=== PATIENT | male | born 1945 | race Caucasian/White ===

== ENCOUNTER → 2021-04-21 08:04 | Outpatient (CLI) | payer MEDICARE, SELFPAY ==
[2021-04-21 11:29] LABS: COVID19 -Nasal RAPID Negative (Negative)
== END ==
PROVIDERS: PCP Family Medicine; Visit Provider Nurse Practitioner Family
DX: Z20.822 Contact with and (suspected) exposure to COVID-19 (principal); R06.02 Shortness of breath
CPT/HCPCS: 87635

== ENCOUNTER → 2021-09-17 15:57 | Outpatient (CLI) | payer OTHER, SELFPAY ==
--- NOTE | 2021-09-17 15:59 | DI.RAD.S_ITS ---
PROCEDURE: XR HIP W PEL IF DONE LT 2V INDICATIONS: Left hip pain TECHNIQUE: AP pelvis with lateral view(s) of the left hip(s). COMPARISON: None. FINDINGS: Bones: No fractures or dislocations. Pelvic ring appears intact. Moderate to advanced arthrosis of the left hip with joint space loss, sclerosis of the opposing articular surface, and osteophytosis. Soft tissues: The visualized bowel gas pattern is normal. Evidence of myositis ossificans. IMPRESSION: Moderate to advanced left hip arthrosis. Dictated by: Jerardo Steve M.D. on 09/17/2021 at 16:42 Approved by: Jerardo Steve M.D. on 09/17/2021 at 16:45
== END ==
PROVIDERS: PCP Family Medicine; Referring Provider Family Medicine; Visit Provider Family Medicine
DX: M25.552 Pain in left hip (principal); M16.12 Unilateral primary osteoarthritis, left hip
CPT/HCPCS: 73502

== ENCOUNTER → 2023-01-06 10:44 | Outpatient (CLI) | payer OTHER, SELFPAY ==
[2023-01-06 11:25] LABS: Add Manual Diff / Slide Review NO; Basophils Absolute Auto 100 /uL (0-100); Basophils Percent Auto 0.8 % (0-2); Eosinophils Absolute Auto 800 /uL (0-450); Eosinophils Percent Auto 11.6 % (2-4); Hematocrit 40.8 % (41-53); Hemoglobin 14.1 g/dL (13.5-17.5); Lymphocytes Absolute Auto 1800 /uL (1100-4500); Mean Corpuscular HGB Conc 34.6 % (30-36); Mean Corpuscular Hemoglobin 30.8 PG (26-34); Mean Corpuscular Volume 88.8 fL (80-100); Monocytes Absolute Auto 400 /uL (0-900); Monocytes Percent Auto 6.8 % (3-14); Neutrophils Absolute Auto 3500 /uL (1500-7000); Neutrophils Percent Auto 52.8 % (50-75); Platelet Count 213 X10^3/uL (150-400); Red Blood Cell Count 4.59 X10^6/uL (4.5-5.9); Red Cell Distribution Width 13.1 % (11.6-14.8); White Blood Cell Count 6.6 X10^3/uL (4.5-11.0)
[2023-01-06 11:38] LABS: Alanine Aminotransferase 45 IU/L (<50); Albumin 4.3 g/dL (3.5-5.0); Albumin Globulin Ratio 1.4 (1.0-2.8); Alkaline Phosphatase 70 U/L (38-126); Aspartate Aminotransferase 36 IU/L (17-59); BUN Creatinine Ratio 19.5 (6-22); Bilirubin Total 0.4 mg/dL (0.2-1.3); Blood Urea Nitrogen 15 mg/dL (9-20); Calcium 9.2 mg/dL (8.4-10.2); Carbon Dioxide 31 mmol/L (22-32); Chloride 100 mmol/L (98-107); Cholesterol 158 mg/dL (140-199); Estimated Glomerular Filt Rate > 60 mL/min (>60); Globulin 3.1 g/dL (1.7-4.1); Glucose 106 mg/dL (80-110); HDL Cholesterol 38 mg/dL (40-60); HEMOLYSIS < 15 (0-50); LDL Cholesterol Calculated 88 mg/dL (<100); Potassium 4.2 mmol/L (3.4-5.1); Sodium 136 mmol/L (137-145); Total Protein 7.4 g/dL (6.3-8.2); Triglycerides 160 mg/dL (35-150)
[2023-01-06 12:06] LABS: Prostate Specific Antigen 4.83 ng/mL (0.10-4.00)
== END ==
PROVIDERS: PCP Family Medicine; Referring Provider Family Medicine; Visit Provider Family Medicine
DX: Z00.00 Encounter for general adult medical examination without abnormal findings (principal); G47.00 Insomnia, unspecified; M16.12 Unilateral primary osteoarthritis, left hip
CPT/HCPCS: 36415; 80053; 80061; 84153; 85025

== ENCOUNTER 2023-07-24 15:43 | Emergency (ER) | payer MEDICARE, SELFPAY ==
[2023-07-24] VITALS (20 sets, daily range): BP systolic 113–152; BP diastolic 68–86; PULSE 73–85; RESP 9–24; TEMP 36.7–37; O2SAT 94–99; BMI 25.8
--- NOTE | 2023-07-24 15:55 | DI.RAD.S_ITS ---
PROCEDURE: XR CHEST 1V INDICATIONS: chest pain TECHNIQUE: One view of the chest was acquired. COMPARISON: [facility], CT, CT ANGIO CHEST ABDOMEN PELVIS, 07/24/2023, 17:05. FINDINGS: Surgical changes and devices: None. Lungs and pleura: Lungs are clear. No pleural effusions or pneumothorax. Mediastinum: Mediastinal contours appear normal. Heart size is normal. Bones and chest wall: No suspicious bony lesions. Overlying soft tissues appear unremarkable. IMPRESSION: No acute cardiopulmonary abnormality is seen. Dictated by: Toi Smalls M.D. on 07/24/2023 at 17:17 Approved by: Toi Smalls M.D. on 07/24/2023 at 17:18
[2023-07-24] MEDS: ASPIRIN 81 MG CHEW TAB 324 MG PO (15:58)
--- NOTE | 2023-07-24 16:07 | PC.NURSE ---
Pt came to the emergency dept today because he was at work and began having epigastric cp, difficulty taking a deep breath and numbness that radiated down both left and right arms. Pt reports that he was not exerting himself when he began to feel the cp. A&Ox4 and speaking in full clear sentences without any difficulty breathing or SOB.
[2023-07-24 16:23] LABS: Add Manual Diff / Slide Review NO; Basophils Absolute Auto 100 /uL (0-100); Basophils Percent Auto 1.1 % (0-2); Eosinophils Absolute Auto 800 /uL (0-450); Eosinophils Percent Auto 10.1 % (2-4); Hematocrit 41.3 % (41-53); Hemoglobin 14.3 g/dL (13.5-17.5); Lymphocytes Absolute Auto 2000 /uL (1100-4500); Lymphocytes Percent Auto 24.4 % (25-40); Mean Corpuscular HGB Conc 34.6 % (30-36); Mean Corpuscular Hemoglobin 30.3 PG (26-34); Mean Corpuscular Volume 87.7 fL (80-100); Monocytes Absolute Auto 500 /uL (0-900); Monocytes Percent Auto 6.2 % (3-14); Neutrophils Absolute Auto 4700 /uL (1500-7000); Neutrophils Percent Auto 58.2 % (50-75); Platelet Count 227 X10^3/uL (150-400); Prothrombin Time 10.9 SECONDS (9.4-12.5); Red Blood Cell Count 4.71 X10^6/uL (4.5-5.9); Red Cell Distribution Width 13.6 % (11.6-14.8)
[2023-07-24 16:25] LABS: PTT Partial Thromboplastin Tim 34 SECONDS (25.1-36.5)
[2023-07-24 16:29] LABS: Alanine Aminotransferase 35 IU/L (<50); Albumin 4.6 g/dL (3.5-5.0); Albumin Globulin Ratio 1.3 (1.0-2.8); Alkaline Phosphatase 86 U/L (38-126); Aspartate Aminotransferase 43 IU/L (17-59); BUN Creatinine Ratio 21.3 (6-22); Bilirubin Total 0.5 mg/dL (0.2-1.3); Blood Urea Nitrogen 19 mg/dL (9-20); Calcium 9.8 mg/dL (8.4-10.2); Carbon Dioxide 26 mmol/L (22-32); Chloride 100 mmol/L (98-107); Creatine Kinase 280 U/L (55-170); Estimated Glomerular Filt Rate > 60 mL/min (>60); Globulin 3.6 g/dL (1.7-4.1); Glucose 87 mg/dL (80-110); HEMOLYSIS < 15 (0-50); Lipase 79 U/L (23-300); Magnesium 1.8 mg/dL (1.6-2.3); Potassium 4.4 mmol/L (3.4-5.1); Sodium 137 mmol/L (137-145); Total Protein 8.2 g/dL (6.3-8.2)
--- NOTE | 2023-07-24 16:36 | ED_ITS ---
HPI - Chest Pain <Serene Head MD - Last Filed: 07/26/23 09:17> General Chief Complaint: Chest Pain Stated Complaint: SOB/numbness in both arms Time Seen by Provider: 07/24/23 16:13 Source: patient Mode of arrival: Wheelchair Limitations: no limitations History of Present Illness HPI narrative: 77-year-old gentleman with no significant medical history presents complaining of acute chest pain starting at 3:00 p.m. this afternoon. He was at work not doing any particularly strenuous activity developed central chest pain radiating across the full chest down into both arms associated with ?heartburn? sensation, dyspnea and diaphoresis. He comes to the emergency room for further evaluation. He does not report recent fevers, cough, chills, palpitations, dyspnea, orthopnea. To his knowledge he does not have high blood pressure however he does not frequently see his physician Related Data Previous Rx's Medication Instructions Recorded olopatadine 0.2 % eye drops 1 drop EYE-BOTH BID #5 mL 10/10/19 (Pataday) clobetasol 0.05 % scalp solution 1 applic topical BEDTIME #50 mL 09/17/21 triamcinolone acetonide 0.1 % 1 applic topical BID #30 grams 05/02/22 topical cream atorvastatin 40 mg tablet 40 mg PO DAILY #90 tabs 01/16/23 desonide 0.05 % topical ointment 1 applic topical DAILY #15 grams 01/16/23 Allergies Allergy/AdvReac Type Severity Reaction Status Date / Time No Known Drug Allergies Allergy Verified 07/24/23 15:55 Review of Systems <Serene Head MD - Last Filed: 07/26/23 09:17> Review of Systems Narrative: Pertinent positive and negative findings as per HPI Patient History <Serene Head MD - Last Filed: 07/26/23 09:17> Medical History Cerumen impaction Hyperlipidemia Insomnia Itchy, watery, and red eye Left hip pain Preventative health care Primary localized osteoarthrosis of left hip Psoriasis Sleep apnea Surgical History Anesthesia History of back surgery (~1983) Family History Father Mental health problem Mother Cancer Brother Hypertension Sister Cancer Social History marital status: unmarried,single Smoking Status: Never smoker alcohol intake: current (ON OCCASION ) substance use type: does not use Smoking Status: Never smoker alcohol intake frequency: 0-2 drinks per day Substance Use Type: does not use Exam <Serene Head MD - Last Filed: 07/26/23 09:17> Initial Vital Signs Initial Vital Signs: Vital Signs Temperature 98.0 F 07/24/23 15:51 Pulse Rate 85 07/24/23 15:51 Respiratory Rate 18 07/24/23 15:51 Blood Pressure 142/81 H 07/24/23 15:51 Pulse Oximetry 98 07/24/23 15:51 Oxygen Delivery Method Room Air 07/24/23 15:51 General: in no acute distress. Able to give a complete and coherent history. Well-nourished well-developed Blood pressure right arm 147/87, blood pressure left arm 157/95 HEENT: Moist mucous membranes, normal sclera with reactive pupils, Neck: No JVD, supple Respiratory: Lungs are clear to auscultation, no wheezing no rales no rhonchi. Full and symmetrical air movement Cardiac: Regular rate and rhythm no murmurs no bruits Abdomen: Soft, nontender, good bowel tones, no flank pain Skin: Somewhat pale, mildly diaphoretic Neurologic: Grossly neurologically intact with no obvious asymmetries or abnormalities Extremities: No trauma, well perfused, distal pulses are palpable Psych: Cooperative, appropriate insight and affect <Delmer Trejo DO - Last Filed: 07/25/23 06:12> Initial Vital Signs Initial Vital Signs: Vital Signs Temperature 98.0 F 07/24/23 15:51 Pulse Rate 85 07/24/23 15:51 Respiratory Rate 18 07/24/23 15:51 Blood Pressure 142/81 H 07/24/23 15:51 Pulse Oximetry 98 07/24/23 15:51 Oxygen Delivery Method Room Air 07/24/23 15:51 Course <Serene Head MD - Last Filed: 07/26/23 09:17> Orders Ordered: Discontinued Medications Aspirin (Aspirin 81 Mg Chew Tab) 324 mg PO NOW ONE Stop: 07/24/23 15:56 Last Admin: 07/24/23 15:58 Dose: 324 mg Documented By: RAMIREZ Heparin Sodium (Porcine) (Heparin 5,000 Unit/Ml Vial) 4,000 unit 60 unit/kg (4000 unit) IV NOW ONE Stop: 07/24/23 19:03 Last Admin: 07/24/23 19:13 Dose: 4,000 unit Documented By: RAMIREZ Heparin Sodium/Dextrose (Heparin Drip) 25,000 unit in 500 mls @ 17.962 mls/hr IV CONT AMAN; Protocol Last Admin: 07/24/23 19:18 Dose: 12 units/kg/hr, 17.962 mls/hr Documented By: RAMIREZ Co-signed By: ROBINSON Nitroglycerin (Nitroglycerin) 50 mg in 250 mls @ 1.5 mls/hr IV TITRATE AMAN; Protocol Last Admin: 07/24/23 19:19 Dose: 5 mcg/min, 1.5 mls/hr Documented By: RAMIREZ Sodium Chloride (Normal Saline 0.9%) 1,000 mls @ 1,000 mls/hr IV BOLUS ONE Stop: 07/25/23 01:35 Vital Signs Vital signs: Vital Signs - 8 hr 07/24/23 23:45 07/24/23 23:45 07/25/23 00:00 Pulse Rate 73 76 Respiratory Rate 15 15 Blood Pressure 113/68 Pulse Oximetry 94 93 Oxygen Delivery Method 07/25/23 00:00 07/25/23 00:15 07/25/23 00:15 Pulse Rate 72 Respiratory Rate 13 Blood Pressure 115/67 112/66 Pulse Oximetry 95 Oxygen Delivery Method 07/25/23 00:30 07/25/23 00:31 07/25/23 00:31 Pulse Rate 55 L 53 L Respiratory Rate 26 H 21 Blood Pressure 64/36 L Pulse Oximetry 98 97 Oxygen Delivery Method Room Air Room Air 07/25/23 00:39 07/25/23 00:39 07/25/23 00:45 Pulse Rate 66 Respiratory Rate 12 Blood Pressure 90/58 L 91/57 L Pulse Oximetry 97 Oxygen Delivery Method Room Air 07/25/23 00:45 07/25/23 01:00 07/25/23 01:00 Pulse Rate 63 66 Respiratory Rate 13 20 Blood Pressure 103/62 Pulse Oximetry 98 94 Oxygen Delivery Method Room Air Room Air 07/25/23 01:15 07/25/23 01:15 07/25/23 01:30 Pulse Rate 68 66 Respiratory Rate 29 H 9 L Blood Pressure 114/72 Pulse Oximetry 96 97 Oxygen Delivery Method Room Air Room Air 07/25/23 01:30 07/25/23 01:45 07/25/23 01:45 Pulse Rate 71 Respiratory Rate 27 H Blood Pressure 104/64 109/70 Pulse Oximetry 99 Oxygen Delivery Method Room Air 07/25/23 02:00 07/25/23 02:00 07/25/23 02:15 Pulse Rate 70 Respiratory Rate 9 L Blood Pressure 109/67 123/65 Pulse Oximetry 98 Oxygen Delivery Method Room Air 07/25/23 02:15 07/25/23 02:30 07/25/23 02:30 Pulse Rate 72 73 Respiratory Rate 16 16 Blood Pressure 117/60 Pulse Oximetry 96 97 Oxygen Delivery Method Room Air Room Air 07/25/23 02:45 07/25/23 02:45 07/25/23 03:00 Pulse Rate 74 Respiratory Rate 16 Blood Pressure 122/64 119/69 Pulse Oximetry 98 Oxygen Delivery Method Room Air 07/25/23 03:00 07/25/23 03:15 07/25/23 03:15 Pulse Rate 74 74 Respiratory Rate 16 16 Blood Pressure 119/67 Pulse Oximetry 97 97 Oxygen Delivery Method Room Air Room Air 07/25/23 03:30 07/25/23 03:30 07/25/23 03:45 Pulse Rate 75 Respiratory Rate 15 Blood Pressure 113/64 126/71 Pulse Oximetry 97 Oxygen Delivery Method Room Air 07/25/23 03:45 07/25/23 04:00 07/25/23 04:00 Pulse Rate 77 76 Respiratory Rate 9 L 17 Blood Pressure 138/65 Pulse Oximetry 97 99 Oxygen Delivery Method Room Air Room Air 07/25/23 04:16 07/25/23 04:16 07/25/23 04:30 Pulse Rate 73 74 Respiratory Rate 11 L 12 Blood Pressure 121/70 Pulse Oximetry 97 96 Oxygen Delivery Method Room Air Room Air 07/25/23 04:30 07/25/23 04:45 07/25/23 04:45 Pulse Rate 72 Respiratory Rate 10 L Blood Pressure 123/71 125/70 Pulse Oximetry 97 Oxygen Delivery Method Room Air 07/25/23 05:00 07/25/23 05:00 07/25/23 05:15 Pulse Rate 72 Respiratory Rate 14 Blood Pressure 132/73 131/78 Pulse Oximetry 97 Oxygen Delivery Method Room Air 07/25/23 05:15 07/25/23 05:30 07/25/23 05:30 Pulse Rate 72 76 Respiratory Rate 15 11 L Blood Pressure 133/80 Pulse Oximetry 97 98 Oxygen Delivery Method Room Air Room Air 07/25/23 05:45 07/25/23 05:45 07/25/23 06:00 Pulse Rate 75 73 Respiratory Rate 29 H 9 L Blood Pressure 131/81 Pulse Oximetry 98 96 Oxygen Delivery Method Room Air 07/25/23 06:00 07/25/23 06:15 07/25/23 06:15 Pulse Rate 76 Respiratory Rate 20 Blood Pressure 122/73 122/77 Pulse Oximetry 98 Oxygen Delivery Method 07/25/23 06:30 07/25/23 06:30 07/25/23 06:45 Pulse Rate 72 72 Respiratory Rate 9 L 14 Blood Pressure 124/76 Pulse Oximetry 96 98 Oxygen Delivery Method 07/25/23 06:45 07/25/23 07:00 07/25/23 07:00 Pulse Rate 77 Respiratory Rate 15 Blood Pressure 131/80 127/73 Pulse Oximetry 97 Oxygen Delivery Method Room Air <Delmer Trejo, DO - Last Filed: 07/25/23 06:12> Orders Ordered: Discontinued Medications Aspirin (Aspirin 81 Mg Chew Tab) 324 mg PO NOW ONE Stop: 07/24/23 15:56 Last Admin: 07/24/23 15:58 Dose: 324 mg Documented By: RAMIREZ Heparin Sodium (Porcine) (Heparin 5,000 Unit/Ml Vial) 4,000 unit 60 unit/kg (4000 unit) IV NOW ONE Stop: 07/24/23 19:03 Last Admin: 07/24/23 19:13 Dose: 4,000 unit Documented By: RAMIREZ Heparin Sodium/Dextrose (Heparin Drip) 25,000 unit in 500 mls @ 17.962 mls/hr IV CONT AMAN; Protocol Last Admin: 07/24/23 19:18 Dose: 12 units/kg/hr, 17.962 mls/hr Documented By: RAMIREZ Co-signed By: ROBINSON Nitroglycerin (Nitroglycerin) 50 mg in 250 mls @ 1.5 mls/hr IV TITRATE AMAN; Protocol Last Admin: 07/24/23 19:19 Dose: 5 mcg/min, 1.5 mls/hr Documented By: RAMIREZ Sodium Chloride (Normal Saline 0.9%) 1,000 mls @ 1,000 mls/hr IV BOLUS ONE Stop: 07/25/23 01:35 Vital Signs Vital signs: Vital Signs - 8 hr 07/24/23 23:45 07/24/23 23:45 07/25/23 00:00 Pulse Rate 73 76 Respiratory Rate 15 15 Blood Pressure 113/68 Pulse Oximetry 94 93 Oxygen Delivery Method 07/25/23 00:00 07/25/23 00:15 07/25/23 00:15 Pulse Rate 72 Respiratory Rate 13 Blood Pressure 115/67 112/66 Pulse Oximetry 95 Oxygen Delivery Method 07/25/23 00:30 07/25/23 00:31 07/25/23 00:31 Pulse Rate 55 L 53 L Respiratory Rate 26 H 21 Blood Pressure 64/36 L Pulse Oximetry 98 97 Oxygen Delivery Method Room Air Room Air 07/25/23 00:39 07/25/23 00:39 07/25/23 00:45 Pulse Rate 66 Respiratory Rate 12 Blood Pressure 90/58 L 91/57 L Pulse Oximetry 97 Oxygen Delivery Method Room Air 07/25/23 00:45 07/25/23 01:00 07/25/23 01:00 Pulse Rate 63 66 Respiratory Rate 13 20 Blood Pressure 103/62 Pulse Oximetry 98 94 Oxygen Delivery Method Room Air Room Air 07/25/23 01:15 07/25/23 01:15 07/25/23 01:30 Pulse Rate 68 66 Respiratory Rate 29 H 9 L Blood Pressure 114/72 Pulse Oximetry 96 97 Oxygen Delivery Method Room Air Room Air 07/25/23 01:30 07/25/23 01:45 07/25/23 01:45 Pulse Rate 71 Respiratory Rate 27 H Blood Pressure 104/64 109/70 Pulse Oximetry 99 Oxygen Delivery Method Room Air 07/25/23 02:00 07/25/23 02:00 07/25/23 02:15 Pulse Rate 70 Respiratory Rate 9 L Blood Pressure 109/67 123/65 Pulse Oximetry 98 Oxygen Delivery Method Room Air 07/25/23 02:15 07/25/23 02:30 07/25/23 02:30 Pulse Rate 72 73 Respiratory Rate 16 16 Blood Pressure 117/60 Pulse Oximetry 96 97 Oxygen Delivery Method Room Air Room Air 07/25/23 02:45 07/25/23 02:45 07/25/23 03:00 Pulse Rate 74 Respiratory Rate 16 Blood Pressure 122/64 119/69 Pulse Oximetry 98 Oxygen Delivery Method Room Air 07/25/23 03:00 07/25/23 03:15 07/25/23 03:15 Pulse Rate 74 74 Respiratory Rate 16 16 Blood Pressure 119/67 Pulse Oximetry 97 97 Oxygen Delivery Method Room Air Room Air 07/25/23 03:30 07/25/23 03:30 07/25/23 03:45 Pulse Rate 75 Respiratory Rate 15 Blood Pressure 113/64 126/71 Pulse Oximetry 97 Oxygen Delivery Method Room Air 07/25/23 03:45 07/25/23 04:00 07/25/23 04:00 Pulse Rate 77 76 Respiratory Rate 9 L 17 Blood Pressure 138/65 Pulse Oximetry 97 99 Oxygen Delivery Method Room Air Room Air 07/25/23 04:16 07/25/23 04:16 07/25/23 04:30 Pulse Rate 73 74 Respiratory Rate 11 L 12 Blood Pressure 121/70 Pulse Oximetry 97 96 Oxygen Delivery Method Room Air Room Air 07/25/23 04:30 07/25/23 04:45 07/25/23 04:45 Pulse Rate 72 Respiratory Rate 10 L Blood Pressure 123/71 125/70 Pulse Oximetry 97 Oxygen Delivery Method Room Air 07/25/23 05:00 07/25/23 05:00 07/25/23 05:15 Pulse Rate 72 Respiratory Rate 14 Blood Pressure 132/73 131/78 Pulse Oximetry 97 Oxygen Delivery Method Room Air 07/25/23 05:15 07/25/23 05:30 07/25/23 05:30 Pulse Rate 72 76 Respiratory Rate 15 11 L Blood Pressure 133/80 Pulse Oximetry 97 98 Oxygen Delivery Method Room Air Room Air 07/25/23 05:45 07/25/23 05:45 07/25/23 06:00 Pulse Rate 75 73 Respiratory Rate 29 H 9 L Blood Pressure 131/81 Pulse Oximetry 98 96 Oxygen Delivery Method Room Air 07/25/23 06:00 07/25/23 06:15 07/25/23 06:15 Pulse Rate 76 Respiratory Rate 20 Blood Pressure 122/73 122/77 Pulse Oximetry 98 Oxygen Delivery Method 07/25/23 06:30 07/25/23 06:30 07/25/23 06:45 Pulse Rate 72 72 Respiratory Rate 9 L 14 Blood Pressure 124/76 Pulse Oximetry 96 98 Oxygen Delivery Method 07/25/23 06:45 07/25/23 07:00 07/25/23 07:00 Pulse Rate 77 Respiratory Rate 15 Blood Pressure 131/80 127/73 Pulse Oximetry 97 Oxygen Delivery Method Room Air MDM - Chest Pain <Serene L MD [place] - Last Filed: 07/26/23 09:17> Lab Data 07/25/23 05:34 07/24/23 16:00 Labs: Lab Results 07/24/23 07/24/23 07/24/23 Range/Units 16:00 18:00 19:15 WBC 8.0 (4.5-11.0) X10^3/uL RBC 4.71 (4.5-5.9) X10^6/uL Hgb 14.3 (13.5-17.5) g/dL Hct 41.3 (41-53) % MCV 87.7 (80-100) fL MCH 30.3 (26-34) PG MCHC 34.6 (30-36) % RDW 13.6 (11.6-14.8) % Plt Count 227 (150-400) X10^3/uL Neut % (Auto) 58.2 (50-75) % Lymph % (Auto) 24.4 L (25-40) % [place] % (Auto) 6.2 (3-14) % Eos % (Auto) 10.1 H (2-4) % Baso % (Auto) 1.1 (0-2) % Neut # (Auto) 4700 (2014-8764) /uL Lymph # (Auto) 2000 (0754-1584) /uL [place] # (Auto) 500 (0-900) /uL Eos # (Auto) 800 H (0-450) /uL Baso # (Auto) 100 (0-100) /uL PT 10.9 (9.4-12.5) SECONDS INR 1.0 (0.9-1.3) APTT 34 (25.1-36.5) SECONDS Sodium 137 (137-145) mmol/L Potassium 4.4 (3.4-5.1) mmol/L Chloride 100 (98-107) mmol/L Carbon Dioxide 26 (22-32) mmol/L BUN 19 (9-20) mg/dL Creatinine 0.89 (0.66-1.25) mg/dL Estimated GFR > 60 (>60) mL/min BUN/Creatinine Ratio 21.3 (6-22) Glucose 87 (80-110) mg/dL Calcium 9.8 (8.4-10.2) mg/dL Magnesium 1.8 (1.6-2.3) mg/dL Total Bilirubin 0.5 (0.2-1.3) mg/dL AST 43 (17-59) IU/L ALT 35 (<50) IU/L Alkaline Phosphatase 86 (38-126) U/L Total Creatine Kinase 280 H (55-170) U/L Troponin I < 0.012 0.146 H* (0.01-0.034) ng/mL NT-Pro-B Natriuret Pep 567 H (<450) pg/mL Total Protein 8.2 (6.3-8.2) g/dL Albumin 4.6 (3.5-5.0) g/dL Globulin 3.6 (1.7-4.1) g/dL Albumin/Globulin Ratio 1.3 (1.0-2.8) Lipase 79 (23-300) U/L SARS-CoV-2 (PCR) Negative (Negative) 07/24/23 07/24/23 07/25/23 Range/Units 19:22 21:05 01:24 WBC (4.5-11.0) X10^3/uL RBC (4.5-5.9) X10^6/uL Hgb (13.5-17.5) g/dL Hct (41-53) % MCV (80-100) fL MCH (26-34) PG MCHC (30-36) % RDW (11.6-14.8) % Plt Count (150-400) X10^3/uL Neut % (Auto) (50-75) % Lymph % (Auto) (25-40) % [place] % (Auto) (3-14) % Eos % (Auto) (2-4) % Baso % (Auto) (0-2) % Neut # (Auto) (1177-6848) /uL Lymph # (Auto) (4280-8459) /uL [place] # (Auto) (0-900) /uL Eos # (Auto) (0-450) /uL Baso # (Auto) (0-100) /uL PT (9.4-12.5) SECONDS INR (0.9-1.3) APTT 35 53 H D (25.1-36.5) SECONDS Sodium (137-145) mmol/L Potassium (3.4-5.1) mmol/L Chloride (98-107) mmol/L Carbon Dioxide (22-32) mmol/L BUN (9-20) mg/dL Creatinine (0.66-1.25) mg/dL Estimated GFR (>60) mL/min BUN/Creatinine Ratio (6-22) Glucose (80-110) mg/dL Calcium (8.4-10.2) mg/dL Magnesium (1.6-2.3) mg/dL Total Bilirubin (0.2-1.3) mg/dL AST (17-59) IU/L ALT (<50) IU/L Alkaline Phosphatase (38-126) U/L Total Creatine Kinase (55-170) U/L Troponin I 3.980 H* (0.01-0.034) ng/mL NT-Pro-B Natriuret Pep (<450) pg/mL Total Protein (6.3-8.2) g/dL Albumin (3.5-5.0) g/dL Globulin (1.7-4.1) g/dL Albumin/Globulin Ratio (1.0-2.8) Lipase (23-300) U/L SARS-CoV-2 (PCR) (Negative) 07/25/23 07/25/23 Range/Units 01:39 05:34 WBC (4.5-11.0) X10^3/uL RBC (4.5-5.9) X10^6/uL Hgb 13.3 L (13.5-17.5) g/dL Hct 39.5 L (41-53) % MCV (80-100) fL MCH (26-34) PG MCHC (30-36) % RDW (11.6-14.8) % Plt Count 194 (150-400) X10^3/uL Neut % (Auto) (50-75) % Lymph % (Auto) (25-40) % [place] % (Auto) (3-14) % Eos % (Auto) (2-4) % Baso % (Auto) (0-2) % Neut # (Auto) (9198-5121) /uL Lymph # (Auto) (8935-4588) /uL [place] # (Auto) (0-900) /uL Eos # (Auto) (0-450) /uL Baso # (Auto) (0-100) /uL PT (9.4-12.5) SECONDS INR (0.9-1.3) APTT (25.1-36.5) SECONDS Sodium (137-145) mmol/L Potassium (3.4-5.1) mmol/L Chloride (98-107) mmol/L Carbon Dioxide (22-32) mmol/L BUN (9-20) mg/dL Creatinine (0.66-1.25) mg/dL Estimated GFR (>60) mL/min BUN/Creatinine Ratio (6-22) Glucose (80-110) mg/dL Calcium (8.4-10.2) mg/dL Magnesium (1.6-2.3) mg/dL Total Bilirubin (0.2-1.3) mg/dL AST (17-59) IU/L ALT (<50) IU/L Alkaline Phosphatase (38-126) U/L Total Creatine Kinase 618 H D (55-170) U/L Troponin I 15.700 H* (0.01-0.034) ng/mL NT-Pro-B Natriuret Pep (<450) pg/mL Total Protein (6.3-8.2) g/dL Albumin (3.5-5.0) g/dL Globulin (1.7-4.1) g/dL Albumin/Globulin Ratio (1.0-2.8) Lipase (23-300) U/L SARS-CoV-2 (PCR) (Negative) Urine Dip Bedside Urine Glucose Negative Bedside Urine Bilirubin - Negative Bedside Urine Ketone - Negative Urine Specific [place] 1.025 Bedside Urine Occult Blood - Negative Bedside Urine pH 6.5 Bedside Urine Protein - Negative Bedside Urine Urobilinogen - Negative Bedside Urine Nitrite - Negative Bedside Urine Leukocytes +/- 15 Esterase Imaging Data CTA Chest abd pelvis: Radiologist's Impression: PROCEDURE: CT ANGIO CHEST ABDOMEN PELVIS INDICATIONS: concern for dissection TECHNIQUE: Precontrast 5 mm thick sections acquired from the lung apices to the iliac crests. After the administration of intravenous contrast, 2.5 mm thick sections again acquired from the lung apices to the iliac crests. Maximum intensity projection (MIP) oblique sagittal and coronal reformats were then acquired. For radiation dose reduction, the following was used: automated exposure control. COMPARISON: None. FINDINGS: Image quality: Diagnostic Lungs and pleura: Numerous nodules. There also pleural plaques, possibly aesbestos exposure. No pleural effusions. The largest nodule in the right middle lobe measures up to 8 millimeters 6/254. No dense airspace disease. Mediastinum, heart, and esophagus: On precontrast imaging, no definite intramural hematoma. Atherosclerotic calcifications are not seen. On postcontrast imaging, no evidence of aortic dissection. Aortic valve calcifications are seen. There are coronary calcifications. The left vertebral artery is not seen. No central pulmonary embolism on this nondedicated study. Small hiatal hernia and nonspecific mild esophageal wall thickening. Chest wall and thyroid: Unremarkable Liver: Suspected liver granuloma. No gross abnormality on these arterial phase images. Possible cysts. Subcentimeter lesions are too small to characterize. Gallbladder and biliary system: Unremarkable, nondilated Pancreas: No ductal dilation. Spleen: Nonenlarged Adrenals: No discrete nodules Kidneys: No hydronephrosis. No solid mass. Small cysts are suspected to be present. Vessels and lymph nodes: [id number] atherosclerotic calcifications of the aorta and its branches. No high-grade stenosis. The mesenteric vessels appear patent, with mild irregularities. The venous systems are not well evaluated on this study. No pathologic lymph nodes by size criteria. Bowel and peritoneum: No evidence of small bowel obstruction. Colonic diverticula are seen. Consider age-appropriate colonoscopy correlation. No abscess identified. Body wall: Mild umbilical hernia containing congested omentum. Pelvis: Prostatomegaly and heterogeneous enhancement, correlate with PSA. Bladder is unremarkable not well evaluated on this study. Bones: Heterotopic ossification the left lower extremity. Degenerative changes. IMPRESSION: No evidence of intramural hematoma or acute aortic dissection. The left vertebral artery proximal portion is not seen, which can sometimes be congenital. Correlate with any symptoms. There are numerous pulmonary nodules, the largest measuring up to 8 millimeters. Recommend 3 month follow-up CT. Esophageal wall thickening and possible small hernia, possibly esophagitis. This may be correlated with endoscopy. Coronary calcifications are present. Numerous other findings above. Dictated by: Wenceslao Crystal M.D. on 07/24/2023 at 17:57 MDM Narrative Medical decision making narrative: CC: Chest pain Complicating co-morbidities: Minimal interaction with the healthcare system, no current medical diagnoses or medications Data collected from: patient Social determinants of health that may influence the patients condition: Currently under house arrest Medical records reviewed: Primary care note from December of 2022 indicates that is he does have a diagnosis of hyperlipidemia. Differential considered: STEMI, NSTEMI, aortic dissection, pulmonary embolism, pneumothorax Exam documented above, pertinent findings include: Nontoxic-appearing gentleman however he is slightly pale mildly diaphoretic. Slightly elevated blood pressures but essentially equal in both arms. Otherwise benign exam Lab Test results independently reviewed as above. Pertinent findings: CBC is entirely unremarkable Chemistries are reassuring with normal renal function, electrolyte and liver studies Initial troponin is unremarkable Independently reviewed EKG: Sinus rhythm at a rate of 81. LVH with probable J-point elevation Imaging studies independently reviewed: Chest x-ray is unremarkable CT angiogram of chest abdomen and pelvis done with concerns for possible dissection shows no evidence dissection, incidental finding with numerous pulmonary nodules in [address] scan as followed up, esophageal wall thickening appreciated Treatments: 81 mg of aspirin given, heparin drip started when initial elevated troponin returned. Nitro drip started when patient was further queried and still complaining of somewhere between 2 to 5/10 chest pain. Re-evaluations: 6:00 p.m. concern for NSTEMI, need for transfer, need for heparin and nitro and explanation of symptoms and immediate concerns are all reviewed with the patient. He would multiple questions which were answered. Did not seem to understand the acuity of the situation so additional time was spent trying to explain the immediate concerns and reason for expedited treatment rather than discharge home with outpatient follow up. He seemed to express understanding. Care is turned over to Dr. Trejo at change of shift Discussion: Dr trejo: Received turned over. Review patient's history and physical exam and workup up to this point. Patient continues to be asymptomatic. He has on a heparin drip and a nitroglycerin drip. Subsequent troponins are elevating. He did have 1 episode of hypotension with a systolic blood pressure in the 70s and a mean arterial pressure in the 50s. The nitroglycerin drip was stopped. He was given fluids. His blood pressure improved. Repeat EKG at that time has been unchanged from prior. I discussed the case with hospitalist and refinery operator helper crude unit at [facility] who accepts patient for transfer. Patient is in need of transfer secondary to lack of cardiology consultation here at this facility. Patient is stable for transport. <Delmer Trejo, DO - Last Filed: 07/25/23 06:12> Lab Data Labs: Lab Results 07/24/23 07/24/23 07/24/23 Range/Units 16:00 18:00 19:15 WBC 8.0 (4.5-11.0) X10^3/uL RBC 4.71 (4.5-5.9) X10^6/uL Hgb 14.3 (13.5-17.5) g/dL Hct 41.3 (41-53) % MCV 87.7 (80-100) fL MCH 30.3 (26-34) PG MCHC 34.6 (30-36) % RDW 13.6 (11.6-14.8) % Plt Count 227 (150-400) X10^3/uL Neut % (Auto) 58.2 (50-75) % Lymph % (Auto) 24.4 L (25-40) % [place] % (Auto) 6.2 (3-14) % Eos % (Auto) 10.1 H (2-4) % Baso % (Auto) 1.1 (0-2) % Neut # (Auto) 4700 (1605-9696) /uL Lymph # (Auto) 2000 (6587-5108) /uL [place] # (Auto) 500 (0-900) /uL Eos # (Auto) 800 H (0-450) /uL Baso # (Auto) 100 (0-100) /uL PT 10.9 (9.4-12.5) SECONDS INR 1.0 (0.9-1.3) APTT 34 (25.1-36.5) SECONDS Sodium 137 (137-145) mmol/L Potassium 4.4 (3.4-5.1) mmol/L Chloride 100 (98-107) mmol/L Carbon Dioxide 26 (22-32) mmol/L BUN 19 (9-20) mg/dL Creatinine 0.89 (0.66-1.25) mg/dL Estimated GFR > 60 (>60) mL/min BUN/Creatinine Ratio 21.3 (6-22) Glucose 87 (80-110) mg/dL Calcium 9.8 (8.4-10.2) mg/dL Magnesium 1.8 (1.6-2.3) mg/dL Total Bilirubin 0.5 (0.2-1.3) mg/dL AST 43 (17-59) IU/L ALT 35 (<50) IU/L Alkaline Phosphatase 86 (38-126) U/L Total Creatine Kinase 280 H (55-170) U/L Troponin I < 0.012 0.146 H* (0.01-0.034) ng/mL NT-Pro-B Natriuret Pep 567 H (<450) pg/mL Total Protein 8.2 (6.3-8.2) g/dL Albumin 4.6 (3.5-5.0) g/dL Globulin 3.6 (1.7-4.1) g/dL Albumin/Globulin Ratio 1.3 (1.0-2.8) Lipase 79 (23-300) U/L SARS-CoV-2 (PCR) Negative (Negative) 07/24/23 07/24/23 07/25/23 Range/Units 19:22 21:05 01:24 WBC (4.5-11.0) X10^3/uL RBC (4.5-5.9) X10^6/uL Hgb (13.5-17.5) g/dL Hct (41-53) % MCV (80-100) fL MCH (26-34) PG MCHC (30-36) % RDW (11.6-14.8) % Plt Count (150-400) X10^3/uL Neut % (Auto) (50-75) % Lymph % (Auto) (25-40) % [place] % (Auto) (3-14) % Eos % (Auto) (2-4) % Baso % (Auto) (0-2) % Neut # (Auto) (5385-4365) /uL Lymph # (Auto) (2476-8069) /uL [place] # (Auto) (0-900) /uL Eos # (Auto) (0-450) /uL Baso # (Auto) (0-100) /uL PT (9.4-12.5) SECONDS INR (0.9-1.3) APTT 35 53 H D (25.1-36.5) SECONDS Sodium (137-145) mmol/L Potassium (3.4-5.1) mmol/L Chloride (98-107) mmol/L Carbon Dioxide (22-32) mmol/L BUN (9-20) mg/dL Creatinine (0.66-1.25) mg/dL Estimated GFR (>60) mL/min BUN/Creatinine Ratio (6-22) Glucose (80-110) mg/dL Calcium (8.4-10.2) mg/dL Magnesium (1.6-2.3) mg/dL Total Bilirubin (0.2-1.3) mg/dL AST (17-59) IU/L ALT (<50) IU/L Alkaline Phosphatase (38-126) U/L Total Creatine Kinase (55-170) U/L Troponin I 3.980 H* (0.01-0.034) ng/mL NT-Pro-B Natriuret Pep (<450) pg/mL Total Protein (6.3-8.2) g/dL Albumin (3.5-5.0) g/dL Globulin (1.7-4.1) g/dL Albumin/Globulin Ratio (1.0-2.8) Lipase (23-300) U/L SARS-CoV-2 (PCR) (Negative) 07/25/23 07/25/23 Range/Units 01:39 05:34 WBC (4.5-11.0) X10^3/uL RBC (4.5-5.9) X10^6/uL Hgb 13.3 L (13.5-17.5) g/dL Hct 39.5 L (41-53) % MCV (80-100) fL MCH (26-34) PG MCHC (30-36) % RDW (11.6-14.8) % Plt Count 194 (150-400) X10^3/uL Neut % (Auto) (50-75) % Lymph % (Auto) (25-40) % [place] % (Auto) (3-14) % Eos % (Auto) (2-4) % Baso % (Auto) (0-2) % Neut # (Auto) (8641-2002) /uL Lymph # (Auto) (9330-4369) /uL [place] # (Auto) (0-900) /uL Eos # (Auto) (0-450) /uL Baso # (Auto) (0-100) /uL PT (9.4-12.5) SECONDS INR (0.9-1.3) APTT (25.1-36.5) SECONDS Sodium (137-145) mmol/L Potassium (3.4-5.1) mmol/L Chloride (98-107) mmol/L Carbon Dioxide (22-32) mmol/L BUN (9-20) mg/dL Creatinine (0.66-1.25) mg/dL Estimated GFR (>60) mL/min BUN/Creatinine Ratio (6-22) Glucose (80-110) mg/dL Calcium (8.4-10.2) mg/dL Magnesium (1.6-2.3) mg/dL Total Bilirubin (0.2-1.3) mg/dL AST (17-59) IU/L ALT (<50) IU/L Alkaline Phosphatase (38-126) U/L Total Creatine Kinase 618 H D (55-170) U/L Troponin I 15.700 H* (0.01-0.034) ng/mL NT-Pro-B Natriuret Pep (<450) pg/mL Total Protein (6.3-8.2) g/dL Albumin (3.5-5.0) g/dL Globulin (1.7-4.1) g/dL Albumin/Globulin Ratio (1.0-2.8) Lipase (23-300) U/L SARS-CoV-2 (PCR) (Negative) Urine Dip Bedside Urine Glucose Negative Bedside Urine Bilirubin - Negative Bedside Urine Ketone - Negative Urine Specific [place] 1.025 Bedside Urine Occult Blood - Negative Bedside Urine pH 6.5 Bedside Urine Protein - Negative Bedside Urine Urobilinogen - Negative Bedside Urine Nitrite - Negative Bedside Urine Leukocytes +/- 15 Esterase MDM Narrative Medical decision making narrative: CC: Chest pain Complicating co-morbidities: Minimal interaction with the healthcare system, no current medical diagnoses or medications Data collected from: patient Social determinants of health that may influence the patients condition: Currently under house arrest Medical records reviewed: Primary care note from December of 2022 indicates that is he does have a diagnosis of hyperlipidemia. Differential considered: STEMI, NSTEMI, aortic dissection, pulmonary embolism, pneumothorax Exam documented above, pertinent findings include: Nontoxic-appearing gentleman however he is slightly pale mildly diaphoretic. Slightly elevated blood pressures but essentially equal in both arms. Otherwise benign exam Lab Test results independently reviewed as above. Pertinent findings: CBC is entirely unremarkable Chemistries are reassuring with normal renal function, electrolyte and liver studies Initial troponin is unremarkable Independently reviewed EKG: Sinus rhythm at a rate of 81. LVH with probable J-point elevation Imaging studies independently reviewed: Consultations: Treatments: 81 mg of aspirin given Re-evaluations: Discussion: Dr trejo: Received turned over. Review patient's history and physical exam and workup up to this point. Patient continues to be asymptomatic. He has on a heparin drip and a nitroglycerin drip. Subsequent troponins are elevating. He did have 1 episode of hypotension with a systolic blood pressure in the 70s and a mean arterial pressure in the 50s. The nitroglycerin drip was stopped. He was given fluids. His blood pressure improved. Repeat EKG at that time has been unchanged from prior. I discussed the case with hospitalist and refinery operator helper crude unit at [facility] who accepts patient for transfer. Patient is in need of transfer secondary to lack of cardiology consultation here at this facility. Patient is stable for transport. Discharge Plan Departure Patient Disposition: [facility] Clinical Impression: Non-ST elevation ID (NSTEMI), Incidental pulmonary nodule Prescriptions: No Action olopatadine [Pataday] 0.2 % drops 1 drop EYE-BOTH BID Qty: 5 0RF triamcinolone acetonide 0.1 % cream 1 applic topical BID Qty: 30 1RF desonide 0.05 % ointment 1 applic TOP DAILY Qty: 15 0RF atorvastatin 40 mg tablet 40 mg PO DAILY Qty: 90 3RF clobetasol 0.05 % solution 1 applic topical BEDTIME Qty: 50 1RF Rx Instructions: Apply to scalp nightly for the 1st 5 nights then 3 times a week as needed Referrals: Judson Rangel, [Primary Care Provider] -
[2023-07-24 16:38] LABS: NT-proBNP (BNP-Adult 18+) 567 pg/mL (<450)
[2023-07-24 16:40] LABS: Troponin I < 0.012 ng/mL (0.01-0.034)
--- NOTE | 2023-07-24 16:42 | DI.CT.S_ITS ---
PROCEDURE: CT ANGIO CHEST ABDOMEN PELVIS INDICATIONS: concern for dissection TECHNIQUE: Precontrast 5 mm thick sections acquired from the lung apices to the iliac crests. After the administration of intravenous contrast, 2.5 mm thick sections again acquired from the lung apices to the iliac crests. Maximum intensity projection (MIP) oblique sagittal and coronal reformats were then acquired. For radiation dose reduction, the following was used: automated exposure control. COMPARISON: None. FINDINGS: Image quality: Diagnostic Lungs and pleura: Numerous nodules. There also pleural plaques, possibly aesbestos exposure. No pleural effusions. The largest nodule in the right middle lobe measures up to 8 millimeters 6/254. No dense airspace disease. Mediastinum, heart, and esophagus: On precontrast imaging, no definite intramural hematoma. Atherosclerotic calcifications are not seen. On postcontrast imaging, no evidence of aortic dissection. Aortic valve calcifications are seen. There are coronary calcifications. The left vertebral artery is not seen. No central pulmonary embolism on this nondedicated study. Small hiatal hernia and nonspecific mild esophageal wall thickening. Chest wall and thyroid: Unremarkable Liver: Suspected liver granuloma. No gross abnormality on these arterial phase images. Possible cysts. Subcentimeter lesions are too small to characterize. Gallbladder and biliary system: Unremarkable, nondilated Pancreas: No ductal dilation. Spleen: Nonenlarged Adrenals: No discrete nodules Kidneys: No hydronephrosis. No solid mass. Small cysts are suspected to be present. Vessels and lymph nodes: [id number] atherosclerotic calcifications of the aorta and its branches. No high-grade stenosis. The mesenteric vessels appear patent, with mild irregularities. The venous systems are not well evaluated on this study. No pathologic lymph nodes by size criteria. Bowel and peritoneum: No evidence of small bowel obstruction. Colonic diverticula are seen. Consider age-appropriate colonoscopy correlation. No abscess identified. Body wall: Mild umbilical hernia containing congested omentum. Pelvis: Prostatomegaly and heterogeneous enhancement, correlate with PSA. Bladder is unremarkable not well evaluated on this study. Bones: Heterotopic ossification the left lower extremity. Degenerative changes. IMPRESSION: No evidence of intramural hematoma or acute aortic dissection. The left vertebral artery proximal portion is not seen, which can sometimes be congenital. Correlate with any symptoms. There are numerous pulmonary nodules, the largest measuring up to 8 millimeters. Recommend 3 month follow-up CT. Esophageal wall thickening and possible small hernia, possibly esophagitis. This may be correlated with endoscopy. Coronary calcifications are present. Numerous other findings above. Dictated by: Wenceslao Crystal M.D. on 07/24/2023 at 17:57 Approved by: Wenceslao Crystal M.D. on 07/24/2023 at 18:07
--- NOTE | 2023-07-24 18:04 | PC.NURSE ---
pt report that he is feeling better than when he checked in. states that his cp is 2/10 and he does not have any numbness or tingling in his arms. Pt a&ox4.
[2023-07-24 19:02] LABS: Troponin I 0.146 ng/mL (0.01-0.034)
[2023-07-24] MEDS: HEPARIN 5,000 UNIT/ML VIAL 4000 UNIT IV (19:13)
[2023-07-24] MEDS: HEPARIN DRIP 25,000 UNIT/500 ML IV.SOLN 17.962 UNIT IV (19:18)
[2023-07-24] MEDS: NITROGLYCERIN 50 MG/250 ML INFUS..BTL IV (19:19)
[2023-07-24 19:40] LABS: PTT Partial Thromboplastin Tim 35 SECONDS (25.1-36.5)
[2023-07-24 19:57] LABS: COVID19 -Nasal RAPID Negative (Negative)
--- NOTE | 2023-07-24 23:42 | PC.NURSE ---
Addendum entered by Shauna Sun CNA 07/25/23 01:48: KELSEA note: Left a message at [facility] at 1979. Nora from [facility] got back to me and took down the information. Patient is on their list. Original Note: KELSEA note: Have calls out to try to transfer patient. Called the following place with the following results: [facility]: 1935, spoke with Mary Grace. No beds [facility]: 2037 Spoke with Troy. Took info, faxed over packet, earliest would be tomorrow. [facility]: 2135 spoke with Cristobal. Can't do it tonight, maybe tomorrow, faxed over packet. [place]: 2139 Spoke with Madina (he tried to say his name but it was muffled and I couldn't grab it, he spelled and this was the best I could make out) said they were at 118% capacity and couldn't take patient. wax pumper and Doctor aware.
[2023-07-25] VITALS (31 sets, daily range): BP systolic 64–138; BP diastolic 36–81; PULSE 53–77; RESP 9–29; O2SAT 93–99
--- NOTE | 2023-07-25 00:31 | PC.NURSE ---
Pt. calling out from exam room w/ c/o lightheadedness & nausea. RN entered exam room to find pt. pale & diaphoretic. BP= 65/35. Pt. placed supine, NTG drip stopped & NS liter bolus initiated w/ fairly rapid turn round of sxs. ERMD to bedside to examine/ re-evaluate. Repeat EKG performed. No return of CP during event.
[2023-07-25 01:36] LABS: PTT Partial Thromboplastin Tim 53 SECONDS (25.1-36.5)
[2023-07-25 01:52] LABS: Creatine Kinase 618 U/L (55-170)
[2023-07-25 05:36] LABS: Hematocrit 39.5 % (41-53); Hemoglobin 13.3 g/dL (13.5-17.5); Platelet Count 194 X10^3/uL (150-400)
== END 2023-07-25 07:05 | disposition short-term general hospital (02) ==
PROVIDERS: Emergency Medicine; Emergency Provider Emergency Medicine; PCP Family Medicine
DX: I21.4 Non-ST elevation (NSTEMI) myocardial infarction (principal); R91.1 Solitary pulmonary nodule; Z20.822 Contact with and (suspected) exposure to COVID-19
CPT/HCPCS: 36415; 71045; 71275; 74174; 80053; 81003; 82550; 83690; 83735; 83880; 84484; 85014; 85018; 85025; 85049; 85610; 85730; 87635; 93005; 99284; 99285; J1644; Q9967

== ENCOUNTER → 2023-09-29 07:21 | Outpatient (CLI) | payer MEDICARE, SELFPAY ==
--- NOTE | 2023-09-29 07:23 | DI.RAD.S_ITS ---
PROCEDURE: XR HIP W PEL IF DONE LT 2V INDICATIONS: L hip pain TECHNIQUE: AP pelvis with lateral view(s) of the left hip(s). COMPARISON: [facility], CR, XR PELVIS WITH LATERAL HIP LEFT, 10/06/2021, 9:06. [facility], CR, XR HIP W PEL IF DONE LT 2V, 09/17/2021, 15:53. FINDINGS: Bones: No fractures or dislocations. Pelvic ring appears intact. Moderate to severe left hip joint degeneration and mild right hip joint degeneration No suspicious bony lesions. Soft tissues: The visualized bowel gas pattern is normal. Heterotopic ossification over the left hip consistent with mild sinus ossifications. IMPRESSION: 1. Moderate to severe degenerative joint disease. 2. Mild osteitis ossifications. Dictated by: June Suazo M.D. on 09/29/2023 at 15:26 Approved by: June Suazo M.D. on 09/29/2023 at 15:28
== END ==
PROVIDERS: PCP Family Medicine; Referring Provider Family Medicine; Visit Provider Family Medicine
DX: M16.0 Bilateral primary osteoarthritis of hip (principal); M86.9 Osteomyelitis, unspecified
CPT/HCPCS: 73502

== ENCOUNTER → 2023-12-02 08:21 | Outpatient (CLI) | payer OTHER, SELFPAY ==
--- NOTE | 2023-12-02 | DI.MRI.S_ITS ---
PROCEDURE: MR HIP LT WO CON INDICATIONS: OSTEOARTHRITIS LEFT HIP TECHNIQUE: Noncontrast coronal T1 spin echo and STIR through the bony pelvis. Coronal and axial T2 fast spin echo with fat saturation, sagittal T1 spin echo, and oblique axial T2 fast spin echo with fat saturation through the hip. COMPARISON: None. FINDINGS: Image quality: Excellent. Bones and joints: Edema is seen in left femoral head and neck without discrete fracture line. Similar edema in adjacent medial portion of left acetabulum is also noted without discrete fracture line. There is asymmetric severe left hip joint osteoarthritis with complete loss of joint space, extensive subchondral sclerosis and marginal osteophyte formation. No evidence of avascular necrosis of femoral head. Degenerative disc disease in visualized lower lumbar spine is seen. Tendons and ligaments: There is distal left gluteus medius and minimus tendinosis at their insertions on greater trochanter. The nearby proximal iliotibial band also appears intact. The iliopsoas tendon appears intact, without adjacent bursal fluid collections or evidence for impingement syndrome. Tendinosis involving left hamstring tendon origins at the ischial tuberosity is noted. Labrum and cartilage: Global signal abnormality throughout left hip labrum is seen suggestive of extensive labral tear. Diffuse loss of articulating cartilage over left femoral head is also noted. Soft tissues: Visualized muscles demonstrate normal bulk and internal signal. Quadratus femoris muscle demonstrates no internal edema to suggest ischiofemoral impingement. The proximal sciatic neurovascular bundle appears normal adjacent to the hamstring tendons. No free pelvic fluid. Bladder wall thickness is normal. Enlarged prostate gland with mass effect on floor of urinary bladder is seen. IMPRESSION: 1. Asymmetric severe left hip joint osteoarthritis. No fracture or dislocation. Mild edema in left acetabulum and left femoral head and neck without discrete fracture line likely represent stress related changes. No evidence of avascular necrosis of femoral head. Degenerative disc disease in visualized lower lumbar spine. 2. Tendinosis involving left gluteus medius and minimus tendons at the greater trochanter. Tendinosis involving left hamstring tendon origins at ischial tuberosity. 3. Global signal abnormality throughout left hip labrum suggestive of extensive left hip labral tear. Dictated by: Gio Walker M.D. on 12/04/2023 at 8:26 Approved by: Gio Walker M.D. on 12/04/2023 at 8:33
== END ==
PROVIDERS: PCP Family Medicine; Referring Provider Orthopaedic Surgery Adult Reconstructive Orthopaedic Surgery; Visit Provider Orthopaedic Surgery Adult Reconstructive Orthopaedic Surgery
DX: M16.12 Unilateral primary osteoarthritis, left hip (principal); M25.452 Effusion, left hip; M51.36 Other intervertebral disc degeneration, lumbar region
CPT/HCPCS: 73721

== ENCOUNTER → 2023-12-18 17:01 | Outpatient (CLI) | payer MEDICARE, OTHER, SELFPAY ==
[2023-12-18 18:06] LABS: Add Manual Diff / Slide Review NO; Basophils Absolute Auto 0 /uL (0-100); Basophils Percent Auto 0.6 % (0-2); Eosinophils Absolute Auto 1300 /uL (0-450); Eosinophils Percent Auto 16.3 % (2-4); Hematocrit 39.3 % (41-53); Hemoglobin 13.3 g/dL (13.5-17.5); Lymphocytes Absolute Auto 2000 /uL (1100-4500); Lymphocytes Percent Auto 24.9 % (25-40); Mean Corpuscular HGB Conc 33.8 % (30-36); Mean Corpuscular Hemoglobin 30.1 PG (26-34); Mean Corpuscular Volume 88.8 fL (80-100); Monocytes Absolute Auto 500 /uL (0-900); Monocytes Percent Auto 6.4 % (3-14); Neutrophils Absolute Auto 4200 /uL (1500-7000); Neutrophils Percent Auto 51.8 % (50-75); Platelet Count 188 X10^3/uL (150-400); Red Blood Cell Count 4.42 X10^6/uL (4.5-5.9); Red Cell Distribution Width 13.4 % (11.6-14.8); White Blood Cell Count 8.2 X10^3/uL (4.5-11.0)
[2023-12-18 18:18] LABS: Albumin 4.4 g/dL (3.5-5.0); BUN Creatinine Ratio 22.9 (6-22); Blood Urea Nitrogen 19 mg/dL (9-20); Calcium 8.8 mg/dL (8.4-10.2); Carbon Dioxide 28 mmol/L (22-32); Chloride 104 mmol/L (98-107); Estimated Glomerular Filt Rate > 60 mL/min (>60); Glucose 95 mg/dL (80-110); HEMOLYSIS < 15 (0-50); Potassium 4.3 mmol/L (3.4-5.1); Sodium 137 mmol/L (137-145)
[2023-12-18 18:25] LABS: Prealbumin 29.6 mg/dL (17.6-36.0)
[2023-12-18 19:20] LABS: Vitamin D 25 Hydroxy (D3) 37.4 ng/mL (30.0-100.0)
== END ==
PROVIDERS: PCP Family Medicine; Referring Provider Orthopaedic Surgery Adult Reconstructive Orthopaedic Surgery; Visit Provider Orthopaedic Surgery Adult Reconstructive Orthopaedic Surgery
DX: Z01.812 Encounter for preprocedural laboratory examination (principal); E55.9 Vitamin D deficiency, unspecified; R73.9 Hyperglycemia, unspecified; Z01.818 Encounter for other preprocedural examination; R77.0 Abnormality of albumin
CPT/HCPCS: 36415; 80048; 82040; 82306; 83036; 84134; 85025

== ENCOUNTER → 2023-12-19 17:07 | Outpatient (CLI) | payer OTHER, SELFPAY ==
--- NOTE | 2023-12-19 17:12 | EKG_ITS ---
[address] [address] Test Date: 2023-12-19 Pat Name: Chevy Sousa Department: Room: Gender: Male Marriage Counselor: OTONIEL : 1945 Requested By: Order Number: [id number] Reading MD: Nigel Diggs Measurements Intervals [place] Rate: 71 P: 58 WV: 150 QRS: 62 QRSD: 92 T: 73 QT: 414 QTc: 449 Interpretive Statements Normal sinus rhythm Electronically Signed On 12-21-2023 7:36:08 PDT by Nigel Diggs
== END ==
PROVIDERS: PCP Family Medicine; Referring Provider Orthopaedic Surgery Adult Reconstructive Orthopaedic Surgery; Visit Provider Orthopaedic Surgery Adult Reconstructive Orthopaedic Surgery
DX: Z01.818 Encounter for other preprocedural examination (principal); R77.0 Abnormality of albumin; E55.9 Vitamin D deficiency, unspecified; Z01.812 Encounter for preprocedural laboratory examination; R73.9 Hyperglycemia, unspecified
CPT/HCPCS: 93005

== ENCOUNTER 2024-03-08 08:41 | Day surgery (SDC) | payer MEDICARE, SELFPAY ==
[2024-03-01 08:10] VITALS: BMI 25.8
[2024-03-08] VITALS (10 sets, daily range): BP systolic 90–137; BP diastolic 50–95; PULSE 65–83; RESP 11–20; TEMP 35.7–37.2; O2SAT 94–100; BMI 25.7
--- NOTE | 2024-03-08 | DI.RAD.S_ITS ---
PROCEDURE: XR HIP W PEL IF DONE LT 2V INDICATIONS: TOTAL HIP TECHNIQUE: Intraoperative images COMPARISON: [facility], ALISE, XR HIP W PEL IF DONE LT 2V, 09/29/2023, 6:40. [facility], [place], XR HIP W PEL IF DONE LT 2V, 09/17/2021, 15:53. FINDINGS: Intraoperative images demonstrate a total left hip arthroplasty in progress. IMPRESSION: Total left hip arthroplasty in progress. Please see the operative report for further details. Dictated by: Arturo Garland M.D. on 03/08/2024 at 14:11 Approved by: Arturo Garland M.D. on 03/08/2024 at 14:12
--- NOTE | 2024-03-08 | PATH_ITS ---
[facility] Accession Number: [id number] No. of containers..01 Tissue . 01 Material submitted: . hip - LEFT HIP . 01 Clinical history: . HETEROTOPIC CALCIFICATION . 01 Diagnosis: BONE, LEFT HIP, EXCISION: Mature bone formation with interspersed unremarkable marrow with unremarkable trilineage hematopoiesis. See comment. [facility] 03/13/2024 1129 Local . 01 Comment: The findings are compatible with clinical history of heterotopic calcification. Clinical and radiologic correlation is recommended. . 01 Electronically signed: . Cristina Ruiz MD, Pathologist NPI- [id number] . 01 Gross description: . Received is a fragment of calcified tissue with a small amount of attached soft tissue (9.4 x 2.0 x 2.0 cm). Sectioning reveals a lindo, hard cut surface that cannot be sectioned with a scalpel. Leases And Land Supervisor sections are submitted in cassette A1 following decalcification. ([id number]) /[facility] 03/13/2024 1103 Local . 01 Pathologist provided ICD-10: M61.9 . 01 CPT . 195172, [id number] Specimen Comment: A courtesy copy of this report has been sent to [facility] Pathology Performed at: [address], [place], [place] [id number] MD Calixto Caicedo MD Phone: [phone]
--- NOTE | 2024-03-08 06:00 | DI.RAD.S_ITS ---
PROCEDURE: XR HIP W PEL IF DONE LT 2V INDICATIONS: NEELAM TECHNIQUE: AP pelvis and lateral view of the hip acquired. COMPARISON: [facility], ALISE, XR HIP W PEL IF DONE LT 2V, 03/08/2024, 12:03. FINDINGS: Bones: Patient is status post left hip arthroplasty, with hardware components in expected positions. The hip joint appears congruent. The visualized bony structures appear intact. Soft tissues: Overlying postoperative changes are noted. No suspicious soft tissue densities. IMPRESSION: Expected post-operative appearance of a hip arthroplasty. Dictated by: Yanira Koenig M.D. on 03/08/2024 at 15:35 Approved by: Yanira Koenig M.D. on 03/08/2024 at 15:36
[2024-03-08] MEDS: ACETAMINOPHEN 325 MG TABLET 975 MG PO (09:51)
[2024-03-08] MEDS: LACTATED RINGERS 1,000 ML 42 ML IV (09:51)
[2024-03-08] MEDS: FAMOTIDINE 20 MG/2 ML VIAL IV (09:51)
--- NOTE | 2024-03-08 10:27 | PM.PREOP ---
Pre-operative Note Interval Note History & Physical reviewed/Exam performed by Physician: Yes Changes to H&P: No
--- NOTE | 2024-03-08 10:36 | SUR.OPER ---
Patient supine on padded [place] table, one arm on padded arm board at <90, other arm padded and secured with tape across patient's chest, both legs secured in padded traction boots and positioned per surgeon, padded post at patient's groin, pressure points checked and padded.
[2024-03-08] MEDS: CEFAZOLIN 2 GM/100 ML PREMIX 100 ML IV ×2 (11:00→18:28)
[2024-03-08] MEDS: TRANEXAMIC ACID 1,000 MG VIAL 1000 MG INJ ×2 (11:03→12:38)
[2024-03-08] MEDS: ROPIVACAINE/EPI/CLONIDINE/KET 50 ML SYRINGE INJ (11:41)
--- NOTE | 2024-03-08 12:42 | P.OP_ITS ---
Operative Date/Time/Diagnoses Date of procedure: 03/08/24 Pre-op diagnosis: Left hip osteoarthritis Heterotopic ossification of left rectus femoris Post-op diagnosis: same Procedure & Clinicians Procedure: Left total hip arthroplasty Excision of heterotopic ossification from left rectus femoris Same procedure as scheduled: Yes Surgeon: Jamal Ring Director [employer]: [employer] Anesthesia Type: Spinal, Sedation and Local Operative Notes Estimated Blood Loss (mL): 350 Procedure in detail: Left Uncemented Direct Anterior Depuy Total Hip Arthroplasty: Implants: * Harvard Gription size 60 cup? * Actis femoral stem size 7 high offset? * 36 mm +1.5 ceramic femoral head? Procedure Summary: This 78-year-old male patient had left hip osteoarthritis as well as heterotopic ossification in his left rectus femoris. I discussed the heterotopic ossification with him preoperatively. He was unaware that he had it and did not recall any specific trauma to the area. I got an MRI which demonstrated that it was contained within the muscle body of the rectus femoris. Intraoperatively I did find it in that location and it was easily dissected from the surrounding musculature so I removed it en bloc and sent it for pathological analysis. He does have a history of cardiac issues including valve surgery. I did still recommend tranexamic acid for his case and it was utilized for his case today. His 60 mm cup achieved an appropriate pinch fit without the need for screws. I found that his acetabular labrum had completely calcified and so this was removed with a rongeur rather than excising it with a knife. Templated implants were used for initial trialing and this was appropriate on all parameters and so those were implanted. Procedure in Detail: This patient was seen preoperatively and evaluated for hip pain which was refractory to numerous nonoperative treatment modalities. Their hip pain correlated with radiographic changes demonstrating significant degeneration in the hip joint. The risks and benefits of continued nonoperative management versus operative management were discussed at length and all of the patient?s questions were answered. Additional educational materials providing further details beyond our discussion in clinic were provided via a publicly available patient education video which included the incidence of medical complications associated with total hip arthroplasty, reasons for revision following total hip arthroplasty, and patient satisfaction rates following total hip arthroplasty. That video can be accessed at [email or web address] . With this understanding of the risks inherent to the procedure, the patient elected to move forward with operative management. Following preoperative optimization, the patient was scheduled for surgery. The patient was met in the preoperative holding area the day of the procedure and all questions were answered. The patient?s nares were swabbed with betadine in order to decolonize them from MRSA. Informed consent was signed and the left limb was marked with indelible ink.? The patient was brought back to the operating room where anesthesia was induced. The patient was transferred to the Franklin table and all bony prominences were padded. The operative site was prepped and draped in the usual sterile fashion. Prior to incision, tranexamic acid and cefazolin were administered. Operative templating images were displayed demonstrating the anticipated implant sizes and correct operative extremity. A timeout procedure was performed verifying the patient?s identity, medical comorbidities, allergies, relevant medications, anesthesia type and the surgical plan. All present were in agreement. The assistance of a physician assistant production manager was required for positioning, room setup, soft tissue retraction and wound closure. Without this assistance, the procedure would have been significantly more challenging and time consuming.?? A direct anterior approach to the hip was utilized. This was performed with a longitudinal incision through a Heuter interval. The incision was planned 2 cm distal and 2 cm lateral to the ASIS extending towards the lateral patella, in line with the muscle body of the TFL. Following incision, the subcutaneous tissue was dissected while taking care to avoid injury to the lateral femoral cutaneous nerve. The fascia overlying the TFL was identified by dissecting off the overlying fat and identifying perforating vessels to the TFL. The TFL fascia was incised and dissected away from the medial border of the TFL. I identified the heterotopic ossification within the muscle body of the rectus femoris and dissected this from the surrounding musculature using electrocautery and blunt dissection. The sample is included photographically above. A cobra retractor was placed over the superior femoral neck between the abductors and the hip capsule and used to reflect the TFL laterally. A [place] self-retainer was then placed in the distal aspect of the wound between the TFL and the rectus femoris. This was tensioned to open up the direct anterior interval and the lateral circumflex vessels were identified and coagulated using electrocautery. The floor of the TFL fascia was incised, exposing the pericapsular fat overlying the hip capsule. A second cobra retractor was placed on the inferior femoral neck. A double-bent soft tissue retractor was placed on the anterior wall of the acetabulum and used to tension the reflected head of rectus femoris, which was then released in order to limit soft tissue tension. A capsulotomy was made in the midline of the anterior hip capsule in line with the femoral neck ending at the vastus tubercle. The double-bent retractor was removed in order to limit the amount of time that a soft tissue retractor remained on the anterior wall and protect the femoral nerve. Tag stitches were placed in the superior and inferior leaflets of the hip capsule. An Lui soft tissue retractor was introduced over the tag stitches and tensioned in the interval between the rectus femoris and the TFL in order to retract and protect those muscles. The cobra retractors were replaced intracapsularly, with one over the superior neck in the pocket created by the base of the greater trochanter and the other on the femoral head. The capsulotomy was extended laterally to the base of the greater trochanter and medially to the lesser trochanter. This required externally rotating the hip. Once the lesser trochanter had been identified, a neck cut was planned according to measurements from preoperative templating. A ruler was cut at the length measured between the superior aspect of the lesser trochanter and the collar of the prosthesis. This line was extended towards the inferior aspect of the lateral cobra retractor to plan a cut which would leave minimal residual femoral neck laterally. The neck was cut at 60 degrees of external rotation along that line. A second cut was performed to remove a large napkin ring and facilitate head extraction. The napkin ring cut and femoral head were removed.?? A broad anterior wall retractor was placed between the labrum and the anterior capsule so that the anterior capsule would prevent capturing and pinching the femoral nerve anteriorly. An additional retractor was placed on the posterior wall. External rotation and traction were applied through the Franklin table so that the cut surface of the femoral neck would not restrict access to the acetabulum. The labrum was excised sharply and the pulvinar was excised with electrocautery to limit bleeding from branches of the obturator artery. Acetabular reamers were selected based on preoperative templating and measurements of the excised femoral head. These were introduced into the acetabulum. Fluoroscopy was utilized to replicate a standing AP pelvis radiograph by centering over the pelvis, rotating until there was appropriate symmetry between the obturator foramen, and introducing caudal tilt to match the position of the pubic symphysis relative to the sacrococcygeal junction according to the patient?s anatomy. Fluoroscopy was utilized to ensure appropriate reaming depth. Once satisfied with the reaming depth corresponding to the preoperative template and the pinch fit between the columns, an appropriate sized acetabular cup was selected which would provide 1 mm of press-fit. This cup was introduced and manipulated until appropriate abduction and anteversion angles were obtained with careful attention to appropriate abduction and anteversion angles as evaluated by the position of the cup relative to the anterior and posterior be of the acetabulum and the AP fluoroscopy which recreated the patient?s standing radiograph. The cup was impacted into place. Peripheral osteophytes were removed. The acetabular liner was then placed with care to ensure locking of the locking mechanism.? Attention was then turned to the femur. All retractors were removed, traction was released, a retractor was placed in the interval between the hip capsule and the gluteus minimus, and the hip was externally rotated to 90 degrees. Traction was applied through the Franklin table to tension the lateral capsule and this was released using electrocautery. Traction was released and a Franklin hook was placed posteriorly around the proximal femur at the level of the vastus ridge. The table height was lowered in order to restrict the tension on the anterior structures during hip hyperextension to limit the risk of femoral nerve palsy. With traction off and the hip at 90 degrees of external rotation, the hip was hyperextended and adducted while manually elevating the femur away from the acetabulum with the Franklin hook to ensure it would not be caught behind the greater trochanter. An asymmetric retractor was placed over the calcar and a broad double-pronged retractor was placed over the greater trochanter. The tag stitch capturing the lateral leaflet of the capsule was moved to the medial side, leaving the conjoined and piriformis tendons isolated in the face of the greater trochanter. The hip was externally rotated and elevated. A release of the conjoined tendon was not necessary in order to obtain adequate exposure for broaching. The canal was opened with an opening broach and a rasp was used to remove cancellous bone. A rongeur was used to remove the residual lateral bone at the base of the greater trochanter to avoid placing the stem in varus. The femur was then broached to the appropriate sized stem yielding good rotational fit and fill of the canal as well as appropriate version of the stem trial. Neck and head trials were placed, all retractors were removed and the hip was returned to neutral abduction and extension. I then reduced the hip. Initial trialing was performed with a size 7 broach, a high offset neck and a +1.5 head. I initially manually externally rotated the hip and found no instability. I then locked the hip in 45 degrees of external rotation and dropped it to the floor with traction off which demonstrated no instability. An AP pelvis fluoroscopic image matching the preoperative standing radiograph with both lesser trochanters visible and both hips in 40 degrees of external rotation demonstrated appropriate leg length and offset. AP and lateral hip fluoroscopic images were obtained to evaluate the broach size which demonstrated appropriate canal fill. The hip was dislocated and I returned to the broaching position. Based on my evaluation during initial trialing I planned to place these definitive implants. The definitive stem was placed and the trunnion was cleaned and dried. I placed a ceramic head onto the trunnion and impacted it into place on the Rawls taper.?? All retractors were removed and the hip was reduced. A dilute mixture of betadine and peroxide was used to bathe the soft tissues during final fluoroscopic assessment. Appropriate component positioning was confirmed on an AP pelvis radiograph with the operative and nonoperative legs in 40 degrees of external rotation, evaluating leg length and offset. Appropriate stem fill was evaluated on AP and lateral hip radiographs. No fractures were identified on these radiographs. There was no hip instability with maximum (120?) external rotation as well as a 45 degree drop test. The hip was copiously irrigated with pulse lavage. The capsule was closed with absorbable interrupted suture. The TFL fascia was closed with barbed suture while carefully protecting the lateral femoral cutaneous nerve from entrapment. A mixture of Ropivacaine, Epinephrine, Clonidine and Toradol was infiltrated throughout the soft tissues. The skin was closed with 2-0 and 3-0 sutures. Surgical glue was applied and a soft dressing was placed.??The sponge, instrument and needle counts were reported as being correct at the end of the case.??No obvious complications occurred. The patient was transferred from the Franklin table back to a stretcher. The patient emerged from anesthesia without difficulty and was taken to the PACU in a stable condition.? Plan for aftercare: * Anterior hip precautions * Weightbearing as tolerated * Aspirin 81 twice per day for DVT prophylaxis * Anticipate discharge home today * Change into normal clothes upon arrival on the hospital floor * Mobilize in the halls as much as is logistically possible. If physical therapy is unavailable for mobilization, then patient should mobilize with nursing staff * Multimodal pain regimen with no IV opioids ordered * Apply ice machine to operative hip. Ensure that sufficient ice is in the chamber for the pad to remain cold * Follow up at [facility] in 2 weeks * Detailed postoperative instructions available at [email or web address]
[2024-03-08] MEDS: ALBUMIN HUMAN 12.5 GM/250 ML VIAL IV (12:45)
[2024-03-08] MEDS: LACTATED RINGERS 1,000 ML 100 ML IV (14:46)
[2024-03-08] MEDS: IBUPROFEN 600 MG TABLET PO ×2 (14:59→21:02)
[2024-03-08] MEDS: ACETAMINOPHEN 325 MG TABLET 650 MG PO ×2 (15:01→21:03)
--- NOTE | 2024-03-08 15:28 | PC.NURSE ---
Addendum entered by Tanisha Vásquez R.N. 03/08/24 18:34: Patient voided 180cc of urine, he stood up and took a few steps with the wax molder. Given 1 oxycodone for pain and helpful. Original Note: Assess- Patient is alert and oriented x4, he denies pain and has feeling to mid thigh. He is complaining of his l.eye bothering him and feeling scratching. Explained to patient that in surgery they can cover your eyes with tape. Dressing to l.hip is cdi with aquacel dressing intact. Patient does not have any nausea and is tolerating food well.
[2024-03-08] MEDS: OXYCODONE IR 5 MG TABLET PO ×2 (18:27→21:02)
[2024-03-08] MEDS: ASPIRIN EC 81 MG TABLET PO (21:02)
[2024-03-08] MEDS: DOCUSATE 100 MG CAPSULE PO (21:03)
[2024-03-08] MEDS: MELATONIN 3 MG TABLET 6 MG PO (21:03)
[2024-03-09] MEDS: OXYCODONE IR 5 MG TABLET PO ×3 (00:05→08:20)
[2024-03-09] MEDS: MELATONIN 3 MG TABLET 6 MG PO (01:16)
[2024-03-09] MEDS: CEFAZOLIN 2 GM/100 ML PREMIX 100 ML IV (03:28)
[2024-03-09 05:00] LABS: Hematocrit 33.7 % (41-53); Hemoglobin 11.3 g/dL (13.5-17.5)
[2024-03-09 07:45] VITALS: BP 107/62; PULSE 70; RESP 18; TEMP 36.2; O2SAT 95
[2024-03-09] MEDS: IBUPROFEN 600 MG TABLET PO (08:12)
[2024-03-09] MEDS: DOCUSATE 100 MG CAPSULE PO (08:13)
[2024-03-09] MEDS: ASPIRIN EC 81 MG TABLET PO (08:13)
[2024-03-09] MEDS: ATORVASTATIN 20 MG TABLET 40 MG PO (08:13)
[2024-03-09] MEDS: EZETIMIBE 10 MG TABLET PO (08:13)
[2024-03-09] MEDS: ACETAMINOPHEN 325 MG TABLET 650 MG PO (08:13)
--- NOTE | 2024-03-09 09:18 | CM.DANOTE ---
Addendum entered by REGIS Longoria 03/09/24 11:43: Per PT, cleared for home with assistance from neighbors.. Original Note: DCP Assessment Note Pt is a 78yo M following elective left hip surgery with Dr. Ring, pt is POD1 PCP Dr[address] Juan Carlos Watermaner [employer] ARCH[employer] reviewed EMR. Entered room and introduced self and role. pt lives alone in [place] and is indep at baseline. Walker, cane, and grab bars at home. no steps into the house. Pt reports having been out of bed yesterday with nursing. Plan is to dc home with neighbors Geraldine and Oscar to assist. Is eager to dc home. Denies any CM needs at this time. Report neighbors can assist with getting meds/groceries. PT pending P: home when medically stable with neighbor support. CM team will continue to follow closely. REGIS Longoria Discharge Planning/Care Management CM Discharge Assessment Start: 03/09/24 09:17 Freq: Status: Active Protocol: Document 03/09/24 09:17 SL (Rec: 03/09/24 09:18 [id number]) Discharge Planning Assessment Assigned Felt Coverer REGIS Espinal DPOA/Assigned Designee Name paul Dimas Contact Information [phone] Advance Directives? No History Provided By Patient,Medical Record Prior Living Arrangements Apartment/Condo Household Members none Type of transporation used prior to Drives own vehicle admit Independent with ADL's Yes Is patient alert and oriented? Yes DME Already Rented / Owned FWW / Walker,Cane Discharge Plan Home Transportation Arrangement neighbor in POV Referrals Initiated None needed Whiteboard Updated in Patient Room with Yes name and ext. # of Felt Coverer Review Status In Process Please Provide Date Initial DC 03/09/24 Assessment Was Performed Next Review Type Continued Stay Review Pre-Anesthesia Assessment Start: 03/01/24 08:10 Freq: Status: Complete Protocol: Document 03/01/24 08:10 LB (Rec: 03/01/24 09:38 LB [id number]) Pre-Anesthesia Assessment Patient Information Reviewed Via Phone Assessment Assessment Completed With Patient Diagnostic Results BMP/CMP,CBC,EKG Comment 12/18/23 at . Primary Care Provider Judson Rangel Medical Clearance Received Yes Seen Specialist in Last 12 Months Yes Specialist Seen Under Seal Operator,Orthopedist Primary Language Togolese Preferred Language [facility] Charge Nurse Required No Height 170.18 cm Weight 74.843 kg Body Mass Index (BMI) 25.8 Hearing Ability Normal Visual Assist Glasses Dentition Type Teeth, Natural Present Other Aids No Comment glasses for reading (cheaters) Hx Anesthesia Reactions No Hx Family Anesthesia Reaction No Hx Malignant Hyperthermia No Hx Blood Transfusions No Anesthesia Review Requested Yes Information Security Manager No alcohol intake former Smoking Status Never smoker Substance Use Type does not use Pain Present Pain Reported Comment left hip, pain down right leg. Musculoskeletal Symptoms Difficulty Walking,Numbness, Radiating Pain into Limb, Tingling History of Falling (Recent or History of No ) Patient is completely paralyzed or No completely immobile Mental Status Oriented to own ability Comment will get walker Is patient on oxygen? No Does patient have REEVES/SOB No Hx Sleep Apnea Yes CPAP/BIPAP use not prescribed Currently Taking a Beta [place] No Can You Climb a Flight of Stairs Without Yes SOB Hx Chest Pain No Hx SOB No Hx Syncope or Dizziness No Anti-Coagulant Therapy Yes: aspirin 81mg daily. Has a Under Seal Operator Yes Under Seal Operator name Dr carmona Pran[facility] Cardiac Testing Yes: EKG 12/19/23 Hx Pacemaker/ICD No Pacemaker Rep Required? No Cardiac Clearance Received Yes Gastrointestinal Symptoms Reflux Bladder Pattern Nocturia Urinary Catheter Present No Diabetes No HgbA1C 6.0 Date 12/18/23 Hx Drug Resistant Organism No Presence of External or Internal Medical Yes: Aortic valve. Devices Have you had any close contact with No someone diagnosed with COVID-19? Are you experiencing any of these No symptoms symptoms? Lives With none Current Living Arrangements Apartment/Condo Number of Stairs To Enter/Railing? 10 steps with railing to enter . Support System Sibling(s) Does the Patient Have Assistance After Yes Surgery Patient Discharge Plan Description Return Home Comment Advised probable 1 night LOS. Health Care Proxy/Next of Kin Judie Stein - daughter Health Care Proxy Emergency Contact Name Igor Escamilla - friend Emergency Contact Advance Directives? No PAC Instructions Assistance for 24 hours post- op,Durable medical equipment, Medications to take/avoid,No ETOH/petroleum product on skin DOS,NPO,Post-op transportation,Pre-surgical wash,Sturdy shoes/comfortable clothes,Do not bring valuables and remove jewelry
--- NOTE | 2024-03-09 09:30 | PT.IIE ---
Current Diagnoses Unilateral primary osteoarthritis, left hip (03/08/24) Surgery Performed Operation Date: 03/08/24 10:45 Actual Procedures p Total Hip Arthroplasty/Anterior Approach(Left) - Jamal Ring MD Surgical History (Last Updated 03/01/24 @ 09:24 by Pao Escamilla, RN) Anesthesia History of back surgery (~1983) S/P TAVR (transcatheter aortic valve replacement) (07/31/23) Medical History (Last Updated 03/01/24 @ 09:25 by Pao Escamilla, RN) Cerumen impaction History of non-ST elevation myocardial infarction (NSTEMI) (07/24/23) History of transcatheter aortic valve replacement (TAVR) (07/31/23) Hyperlipidemia Incidental pulmonary nodule Insomnia Itchy, watery, and red eye Left hip pain Localized osteoarthrosis of left hip Preventative health care Primary localized osteoarthrosis of left hip Psoriasis Sleep apnea Physical Therapy Inpatient Evaluation/Re-Eval M1 PT/OT-IP Prior Functional Status Start: 03/09/24 12:33 Freq: NEEDED Status: Active Protocol: Document 03/09/24 09:30 AB (Rec: 03/09/24 12:45 AB [id number]) Medical Review Prior Functional Status Medical History Reviewed Yes Communication able to make needs known Mobility and Gait pt stated that he was independent with all mobilities and ambulation without AD Social History Household Members none Living Arrangements Apartment/Condo Number of Floors (Floors) One Floor Number of Stairs To Enter/Railing? 2 steps B rails to enter Home Environment Standard Height Toilet,Tub/ Shower Home Equipment Front Wheel Walker,Hand Held Shower,Grab Bars Near Toilet, Grab Bars In Shower Additional Social History Comment pt stated that he has friends/ neighbors that can assist him if needed M2 PT-IP Current Condition Start: 03/09/24 12:33 Freq: NEEDED Status: Active Protocol: Document 03/09/24 09:30 AB (Rec: 03/09/24 12:45 AB [id number]) Physical Therapy Current Condition Current Condition Evaluation Date 03/09/24 Treatment Diagnosis s/p L NEELAM anterior; difficulty in walking Onset Date 03/08/24 M3 PT-IP Subjective Start: 03/09/24 12:33 Freq: NEEDED Status: Active Protocol: Document 03/09/24 09:30 AB (Rec: 03/09/24 12:45 AB [id number]) Subjective Physical Therapy Visit Type Type Initial Evaluation Visit Start Time 09:30 Visit Stop Time 10:50 Number of UTILITY SYSTEM OPERATOR Visits 0 Physical Therapy Visit Comments Patient Comments wants to go home Therapy Pain Assessment Pain When Pain Assessed At Rest Pain Present Pain Present Pain Reported Location Left Hip Intensity 5 Scale Used Numeric (0 - 10) Pain Management Techniques Apply Cold,Distraction, Modification of Treatment,Re- positioning,Timing of Activity with Medications M4 PT-IP Mobility and Gait Start: 03/09/24 12:33 Freq: NEEDED Status: Active Protocol: Document 03/09/24 09:30 AB (Rec: 03/09/24 12:45 AB [id number]) PT-Transfer Assessment Sit to and From Stand Sit to and from Stand Standby Assistance,Contact Guard Assistance,1 Person Assistance,Use of Upper Extremities Equipment Transfer Assistive Device Gait Belt,Front Wheeled Walker Orthotic/Prosthetic Devices or Brace: No Transfers Transfer Destination Chair Transfer Technique ambulated Transfer Ability Level of Assist Standby Assistance,Contact Guard Assistance,1 Person Assistance,Use of Upper Extremities Comments Mobility Comments pt supine in bed and agreeable to do PT. obtained PLOF and home set up from pt. post-op folder provided and reviewed contents. educated pt regarding L anterior hip precautions. BP: 118/73 pt completed supine to sit SBA . able to sit on EOB SBA. completed sit to stand CGA and ambulated in room using FWW ~ 15 ft CGA and cues for hip precautions. pt sat on chair and rested. BP: 123/73. completed sit to stand from the chair SBA and ambulated in the hallway using FWW ~ 200 ft SBA to occasional CGA and cues for hip precautions. stair climibing training: educated pt and how to do stairs. pt completed up/down steps using B rails SBA to CGA and cues. pt repeated x 2 sets. pt stated that he will inform his friend on how to assist him. assisted pt back to his room. pt ambulated from w/c to the chair using fWW SBA ~ 20 ft. positioned pt on the chair. call light and table placed within reach. pt without further concerns. Gait Assessment Gait Gait Assistance Required: Standby Assistance,Contact Guard Assist Distance (Feet) 200 Able to Maintain Weight Bearing Status Yes During Gait Assistive Devices Assistive Device Gait Belt,Front Wheeled Walker Orthotic/Prosthetic Devices or Brace: No Gait Deviations General Gait Pattern Antalgic,Decreased Feet Clearance Factors Limiting Gait Function Factors Limiting Gait Function Decreased Activity Tolerance, Decreased Strength,Limited Range of Motion,Pain,Poor Balance,Poor Safety Awareness Stair Climbing Assessment Evaluation Level of Assist On Stairs Standby Assistance,Contact Guard Assistance Devices Stair Climbing Assistive Devices Left Railing,Right Railing Technique/Endurance Stair Climbing Direction Ascend and Descend Stair Climbing Technique Step to Step Number of Steps Climbed 3 Query Text: Stair Climbing Set # Repetitions (reps) 2 PT-Balance Assessment Sitting Balance and Reactions Static Sitting Balance Ability Normal Dynamic Sitting Balance Ability Normal Standing Balance and Reactions Static Standing Balance Ability Good Dynamic Standing Balance Ability Fair Device Used FWW M5 PT-IP Objective Assessments Start: 03/09/24 12:33 Freq: NEEDED Status: Active Protocol: Document 03/09/24 09:30 AB (Rec: 03/09/24 12:45 AB [id number]) Orientation Orientation/Cognition Level of Alertness Alert Orientation Name Language Function Ability No Deficits Noted Safety Awareness Understands Safety Issues Memory Description Short Term Impaired Gross Range of Motion Lower Extremity ROM Assessment Within Functional Limits Strength Lower Extremity Strength Assessment Left Impaired Hip 3+/5 Knee 4-/5 Coordination Assessment Gross Coordination Gross Coordination WNL Sensation Assessment Sensation Gross Sensation WNL Muscle Tone Muscle Tone WNL Yes M6 PT-IP Treatment Start: 03/09/24 12:33 Freq: NEEDED Status: Active Protocol: Document 03/09/24 09:30 AB (Rec: 03/09/24 12:45 AB [id number]) Physical Therapy Treatment Education Education Provided Precautions,Weight Bearing Status,Post-Op Packet,Safety M7 PT-IP Assessment and Plan Start: 03/09/24 12:33 Freq: NEEDED Status: Active Protocol: Document 03/09/24 09:30 AB (Rec: 03/09/24 12:45 AB [id number]) PT Summary Assessment and Plan Potential Rehabilitation Potential Good Status of Condition at Evaluation Stable Summary Impairments Pain,ROM,Strength,Balance, Coordination,Sensation,Tone, Cognition,Bed Mobility, Transfers,Gait,Activity Tolerance Assessment Summary pt is a 78 y/o M s/p L NEELAM anterior approach POD 1. pt has L hip anterior precautions and is WBAT. pt requiring SBA to CGA with mobility and plans to go home and has friends to assist him if needed. pt has out pt PT set up. pt may go home when medically stable. Goals Bed Mobility Goal Independent Transfer Goal Independent,Front Wheeled Walker Gait Goal Independent,Front Wheel Walker Gait Distance 300 Other Goals up/down 2 steps B rails mod I Days to Meet Goals 5 Frequency of Treatment Frequency Of Treatment Twice a Day Treatment Plan Physical Therapy Treatment Plan Bed Mobility Training,Transfer Training,Gait Training, Therapeutic Exercise,Balance Retraining,Post Op Education, Discharge Planning,Hot or Cold Pack,Neuromuscular Re-ed, Coordination Retraining,Manual Therapy Precautions Anterior Hip Precautions No Hip Extension,No Hip External Rotation Weight Bearing Status Weight Bearing Status Weight Bear as Tolerated Allowed Weight Bearing Amount (enter % LLE WBAT or #) (%) Recommendations To Nursing Amount of Assist Needed 1 Person Assist Discharge Recommendations PT Discharge Recommendations Home with Assistance, Outpatient PT Transportation Needs at Discharge Private Vehicle
--- NOTE | 2024-03-09 09:34 | P.DS_ITS ---
History of Present Illness History of Present Illness Date Patient Seen: 03/09/24 Time Patient Seen: 09:34 Chief complaint: Hip pain Narrative: Hip pain is mild. Denies fever or chills. No nausea or vomiting. Patient has a neighbor that we will be assisting him at home. Discharge Providers Provider Discharge Date: 03/09/24 Primary care physician: Judson Rangel DO Consults: 03/01/24 15:48 Consult to Anesthesiology Routine Comment: Consulting Provider: Anesthesiologist Reason for consultation: surgeon request for cardiac. 03/08/24 06:00 Consult to Anesthesiology Routine Comment: Consulting Provider: Anesthesiologist Reason for consultation: Regional block for post operative pain control Has provider been notified: No 03/08/24 14:09 Consult to Discharge Planning Routine Comment: Consult to Physical Therapy Evaluate & Treat Comment: Physician Instructions: post op NEELAM protocol Discharge provider: Morris Mchugh PA-C Summary Hospital Course Discharge Diagnosis: Left hip osteoarthritis, heterotrophic ossification left rectus femoris Hospital Course: Left total hip arthroplasty Excision of heterotopic ossification from left rectus femoris Same procedure as scheduled: Yes Surgeon: Jamal Ring Security Compliance Specialist: Alexandria Ramos Anesthesia Type: Spinal, Sedation and Local Operative Notes Estimated Blood Loss (mL): 350 Procedure in detail: Left Uncemented Direct Anterior Depuy Total Hip Arthroplasty: Implants: * [place] Gription size 60 cup? * Actis femoral stem size 7 high offset? * 36 mm +1.5 ceramic femoral head? Patient admitted to the hospital for left total hip arthroplasty. Patient consented to the same. Patient underwent left total hip arthroplasty and excision of heterotopic ossification from left rectus femoris March 08, 2024. Patient back in his room recovering well as in stable condition. Patient will mobilize with physical therapy and discharge home today if safe for home environment Status at Discharge Cognitive/behavioral status at discharge: at baseline, oriented Functional status at discharge: uses cane/walker Overall status at discharge: patient is progressing back to baseline Exam Vital Signs (past 8 hours): - 03/09/24 07:45 Temperature 97.1 F L Pulse Rate 70 Respiratory Rate 18 Blood Pressure 107/62 Pulse Oximetry 95 Oxygen Flow Rate 0 Oxygen Delivery Method Room Air Oxygen Flow Rate 0 Narrative Exam Narrative: 78-year-old male resting comfortably in bed in no apparent distress. Hip dressing is clean, dry and intact. Motor functions intact bilateral lower extremities. Sensation is grossly intact to light touch bilateral lower extremity. Const General: cooperative and comfortable Nutritional Appearance: average body habitus Orientation: alert Resp Effort & Inspection: normal respiratory effort and able to speak in complete sentences Objective Labs 03/09/24 04:40 Labs: Laboratory Results - last 24 hr 03/09/24 04:40 Hgb 11.3 L Hct 33.7 L PFSH Medical History (Updated 03/01/24 @ 09:25 by Pao Escamilla RN) History of transcatheter aortic valve replacement (TAVR) (07/31/23) Localized osteoarthrosis of left hip History of non-ST elevation myocardial infarction (NSTEMI) (07/24/23) Incidental pulmonary nodule Hyperlipidemia Insomnia Preventative health care Primary localized osteoarthrosis of left hip Left hip pain Psoriasis Sleep apnea Cerumen impaction Itchy, watery, and red eye Surgical History (Updated 03/01/24 @ 09:24 by Pao Escamilla RN) S/P TAVR (transcatheter aortic valve replacement) (07/31/23) Anesthesia History of back surgery (~1983) Family History Father Mental health problem Mother Cancer Brother Hypertension Sister Cancer Social History marital status: unmarried,single household members: none Smoking Status: Never smoker alcohol intake: former substance use type: does not use Discharge Assessment & Plan Assessment and Plan Assessment: Patient progressing as expected status post left total hip arthroplasty Plan of Treatment: Anterior hip precautions Weightbear as tolerated new line aspirin 81 mg b.i.d. Keep dressing clean and dry Multimodal pain management Ice to hip as needed. Follow up in 2 weeks as previously scheduled Discharge home today after physical therapy if safe for home environment. Discharge Plan Discharge orders & Medications Discharge Orders: Discharge (Order); Ordered 03/09/24 Ordered By: Morris Mchugh Prescriptions: New acetaminophen 325 mg Tablet 650 mg PO Q6H Qty: 60 0RF aspirin 81 mg Tablet,Delayed Release (Dr/Ec) 81 mg PO BID Qty: 60 0RF polyethylene glycol 3350 17 gram Powder In Packet 17 g PO DAILY PRN (Reason: Constipation) Qty: 14 0RF ibuprofen 600 mg Tablet 600 mg PO Q6H Qty: 60 0RF oxycodone 5 mg Tablet 5 mg PO Q3H PRN (Reason: Pain, Severe (7-10)) Qty: 30 0RF Continued atorvastatin 40 mg tablet 40 mg PO DAILY Qty: 90 3RF desonide 0.05 % ointment 1 applic TOP DAILY Qty: 15 0RF ezetimibe 10 mg tablet 10 mg PO DAILY melatonin 5 mg Tablet 5 mg PO BEDTIME PRN (Reason: Sleep) Discontinued aspirin 81 mg tablet,chewable 81 mg PO DAILY ibuprofen 200 mg Tablet 400 mg PO Q6H PRN (Reason: Pain (Scale Score 4-6)) Follow up/Referrals: Judson Rangel DO [Primary Care Provider] - Jamal Ring MD [Physician] - As previously scheduled Diet/Activity/Treatments Diet: Diet as Tolerated Activity: Weightbearing as tolerated Cold/Heat Therapy: Ice to hip as needed Other treatments: Anterior hip precautions Weightbearing as tolerated Aspirin 81 twice per day for DVT prophylaxis Multimodal pain regimen with no IV opioids ordered Apply ice machine to operative hip. Ensure that sufficient ice is in the chamber for the pad to remain cold Follow up at [facility] in 2 weeks Detailed postoperative instructions available at [email or web address] Skin/Wound/Dressing Care Report to your healthcare provider any signs of infection, such as:: chills, fever, night sweats, increased pain, unusual drainage and unusual redness Dressing: Keep dressing clean and dry Visit Report/Discharge Packet Instructions: DI for Prescription Opioid Use Stand Alone Forms: Patient Portal/API, Surgery Discharge Discharge Data Primary Care Provider: Judson Rangel Attending Provider: Jamal Ring Quality VTE Deep Vein Thrombosis/Pulmonary Embolism Present on Admission: No
--- NOTE | 2024-03-09 11:05 | PC.NURSE ---
D/c paperwork reviewed with patient at bedside. Patient states understanding of instructions and hip precautions. Pt has f/u appt with prov sched. ahead of time. Pt. denies any pain medication prior to d/c and denies assistance with dressing. Patient is aware to call when ready to be escorted down to private vehicle. VSS, call light w/ in reach of patient. Pt up sitting in chair.
== END 2024-03-09 12:00 | disposition home or self-care (01) ==
LOC: OR 08:42 → AC 08:44
PROVIDERS: PCP Family Medicine; Referring Provider Orthopaedic Surgery Adult Reconstructive Orthopaedic Surgery; Visit Provider Orthopaedic Surgery Adult Reconstructive Orthopaedic Surgery
PROC: (CPT 27130; principal; 2024-03-08 10:45)
DX: M16.12 Unilateral primary osteoarthritis, left hip (principal); M25.752 Osteophyte, left hip; M61.552 Other ossification of muscle, left thigh
CPT/HCPCS: 27130; 36415; 73502; 76000; 85014; 85018; 97116; 97161; 97530; C1776; J0690; J1100; J2405; J2704; J3010; P9045